=== PATIENT | female | born 1970 | race Caucasian/White ===

== ENCOUNTER 2017-03-15 08:24 | Emergency (ER) | payer BC, OTHER ==
[~2017-03-15] VITALS: Ht 157.5 cm; Wt 68.0 kg
--- OUTSIDE RECORDS SUMMARY | ~2017-03-15 | XMS | Clinical Summary ---
Demographics + + + | Address | [address] | | | [place] [address] | + + + | Home Phone | | + + + | Preferred Language | Unknown | + + + | Marital Status | Unknown | + + + | Orthodox Affiliation | Unknown | + + + | Race | Unknown | + + + | Ethnic Group | Unknown | + + + Author + + + | Author | [facility] | + + + | Organization | [facility] | + + + | Address | Unknown | + + + | Phone | Unavailable | + + + Care Team Providers + +------+ + | Care Program Associate Name | Role | Phone | + +------+ + PP | Unavailable | + +------+ + Source Comments [facility] is fully live on both [facility] and [facility] Allergies Not on File Current Medications [...]
--- OUTSIDE RECORDS SUMMARY | ~2017-03-15 | XMS | Clinical Summary ---
Demographics + + + | Address | [address] | | | [place] [address] | + + + | Home Phone | | + + + | Preferred Language | Unknown | + + + | Marital Status | Unknown | + + + | Religion Affiliation | Unknown | + + + | Race | Unknown | + + + | Ethnic Group | Unknown | + + + Author + + + | Author | [facility] | + + + | Organization | [facility] | + + + | Address | Unknown | + + + | Phone | Unavailable | + + + Care Team Providers + +------+ + | Care Etcher [employer]ed [employer]ards Name | Role | Phone | + +------+ + PP | Unavailable | + +------+ + Source Comments [facility] is fully live on both [facility] and [facility] InPatient.[facility] & [facility] Allergies Not on File Current [...]
[~2017-03-15 08:24] MED LIST: AUGMENTIN 875-1 EACH PO; ESTRADIOL2 MG PO; GABAPENTIN300 MG PO; IBUPROFEN800 MG PO; LANSOPRAZOLE30 MG PO; NORCO 5-325 TA1 EACH PO; PRILOSEC20 MG PO
[2017-03-15] MEDS ORDERED: METHYLPREDNISOLO4 M1 PO (08:58)
[2017-03-15] MEDS ORDERED: ONDANSETRON ODT8 MG PO (08:58)
[2017-03-15] MEDS ORDERED: KETOROLAC TROME10 MG PO (08:58)
== END 2017-03-15 10:12 | disposition home or self-care (01) ==
LOC: ED 08:24
DX: G89.29 Other chronic pain (principal); M54.5 Low back pain; K21.9 Gastro-esophageal reflux disease without esophagitis; Z90.710 Acquired absence of both cervix and uterus; Z90.49 Acquired absence of other specified parts of digestive tract; Z88.5 Allergy status to narcotic agent; Z88.8 Allergy status to other drugs, medicaments and biological substances; Z79.899 Other long term (current) drug therapy
CPT/HCPCS: 96372; 99283; J1885

== ENCOUNTER 2017-03-23 20:20 | Emergency (ER) | payer BC, OTHER ==
[~2017-03-23] VITALS: Ht 157.5 cm; Wt 63.5 kg
[~2017-03-23 20:20] MED LIST changes: +KETOROLAC TROME10 MG PO; +METHYLPREDNISOLO4 M1 PO; +ONDANSETRON ODT8 MG PO
[2017-03-23] MEDS ORDERED: ACYCLOVIR15 GM TOP (20:46)
[2017-03-23] MEDS ORDERED: TRIAMCINOLONE A15 G1 TOP (20:47)
[2017-03-23] MEDS ORDERED: LYRICA50 MG PO (20:47)
--- OUTSIDE RECORDS SUMMARY | 2017-03-23 21:01 | XMS | Clinical Summary ---
Demographics + + + | Address | [address] | | | [place] [address] | + + + | Home Phone | | + + + | Preferred Language | Unknown | + + + | Marital Status | Unknown | + + + | Hindu Affiliation | Unknown | + + + | Race | Unknown | + + + | Ethnic Group | Unknown | + + + Author + + + | Author | [facility] | + + + | Organization | [facility] | + + + | Address | Unknown | + + + | Phone | Unavailable | + + + Care Team Providers + +------+ + | Care Civil Manager Name | Role | Phone | + +------+ + PP | Unavailable | + +------+ + Source Comments [facility] is fully live on both [facility] and [facility] InPatient.[facility] Allergies Not on File Current Medications Not on file Active Problems Not on file Social History + +-------+ +--------+------+ | Tobacco Use | Types | Packs/Day | Years | Date | | | | | Used | | + +-------+ +--------+------+ | Never Assessed | | | | | + +-------+ +--------+------+ + + + | Sex Assigned at | Date Recorded | | | | + + + | Not on file | | + + + Plan of Treatment + + + + + | Health Maintenance | Due Date | Last Done | Comments | + + + + + | INFLUENZA VACCINE | | | | | (FLU SHOT) | 7 | | | + + + + + Results Not on filefrom Last 3 Months"
--- OUTSIDE RECORDS SUMMARY | 2017-03-23 21:01 | XMS | Clinical Summary ---
Demographics + + + | Address | [address] | | | [place] [address] | + + + | Home Phone | | + + + | Preferred Language | Unknown | + + + | Marital Status | Unknown | + + + | Taoist Affiliation | Unknown | + + + | Race | Unknown | + + + | Ethnic Group | Unknown | + + + Author + + + | Author | [facility] | + + + | Organization | [facility] | + + + | Address | Unknown | + + + | Phone | Unavailable | + + + Care Team Providers + +------+ + | Care Blower Insulator Name | Role | Phone | + +------+ + PP | Unavailable | + +------+ + Source Comments [facility] is fully live on both [facility] and [facility] InPatient.[facility] & [facility] Allergies Not on File Current [...]
[2017-03-23] MEDS ORDERED: KETOROLAC TROME10 MG PO (21:50)
== END 2017-03-23 21:56 | disposition home or self-care (01) ==
LOC: ED 20:20
DX: R21 Rash and other nonspecific skin eruption (principal); R51 Headache; K21.9 Gastro-esophageal reflux disease without esophagitis; Z88.5 Allergy status to narcotic agent; Z88.8 Allergy status to other drugs, medicaments and biological substances; Z79.899 Other long term (current) drug therapy
CPT/HCPCS: 80053; 85025; 99283

== ENCOUNTER 2019-06-08 10:58 | Emergency (ER) | payer BC ==
[~2019-06-08] VITALS: Ht 157.5 cm; Wt 64.0 kg
[~2019-06-08 10:58] MED LIST changes: +ACYCLOVIR15 GM TOP; +ESTRADIOL42.5 GM VAGINAL; +LYRICA50 MG PO; +PREVACID30 M1 PO; +TRIAMCINOLONE A15 G1 TOP
== END 2019-06-08 12:51 | disposition home or self-care (01) ==
LOC: ED 10:58
DX: S93.401A Sprain of unspecified ligament of right ankle, initial encounter (principal); K21.9 Gastro-esophageal reflux disease without esophagitis; Z79.899 Other long term (current) drug therapy; X58.XXXA Exposure to other specified factors, initial encounter
CPT/HCPCS: 73610; 99283-25; A9270

== ENCOUNTER 2020-04-08 06:24 | Day surgery (SDC) | payer BC ==
[~2020-04-08] VITALS: Ht 157.5 cm; Wt 65.9 kg
[~2020-04-08 06:24] MED LIST changes: +DAILY MULTIPLE1 EACH PO; +VITAMIN C100 MG PO; +VITAMIN D310 MCG PO; +VITAMIN E100 UNI1 PO; +ZYRTEC10 MG PO
[2020-04-08] MEDS ORDERED: KETOROLAC30 MG/1 M1 INJ (07:15)
--- NOTE | 2020-04-08 09:10 | NUR ---
04/08/20 0910 Arlin Chu 0809 PT ARRIVED IN PACU SLEEPY WITH NO C/O'S. ABD SOFT AND PASSING FLATUS. 0820 SITTING UP IN BED SIPPING ON WATER. NO C/O'S. 0830 DC INSTRUCTIONS GIVEN. ALL QUESTIONS ANSWERED. 0840 PT DISCHARGED. TO DS TO WAIT FOR RIDE HOME. 0855 ARRIVED IN DS. LEFT VIA W/C.
--- NOTE | 2020-04-09 06:32 | OR ---
[facility] [address], [place] [address] Signed DATE OF OPERATION: 04/08/2020 SURGEON: Grace Neal MD PREOPERATIVE DIAGNOSES: 1. Right mid quadrant abdominal pain. 2. Change in bowel habits with increased constipation. 3. Possibly thickened transverse colon on recent CT scan. POSTOPERATIVE DIAGNOSES: 1. 5 mm polyp at hepatic flexure. 2. 4 mm polyp at 90 cm. 3. No pathology of transverse colon. PROCEDURE: Colonoscopy with hot biopsy. ESTIMATED BLOOD LOSS: None. INDICATIONS: Jessica is a 49-year-old female, who I have met in the past. 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 She had an open cholecystectomy as well. 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 Morse. He had retired moved back to [place]. She has various abdominal complaints. Specifically, she feels like she is having pain in the right mid quadrant of the abdomen. She has had a mild change in bowel habits with worsening constipation. She is also worried because her sister in [place] apparently has a tumor up and around the epigastric area. Jessica had been working closely with her primary care provider. A CT scan of abdomen and pelvis showed the 10 cm loop of transverse colon that seems to be thickened. As a result, she was asked to see me for a colonoscopy. In 2006, she went through at least three surgeries. She is not sure if she had a colonoscopy back at that time. She is not aware of any family member with colon cancer or polyps. In the office, I gave her a pamphlet on colonoscopy. We had reviewed the nature of the test. She understands there is risk including, but not limited to gas bloating, crampy abdominal pain, bleeding, perforation requiring surgery, and missed diagnosis. She also understands the need for IV conscious sedation. She had expressed understanding and wished to proceed. Electronically Signed By: GARCE NEAL MD 04/09/20 0632 PATIENT NAME: JESSICA GARCIA OPERATIVE REPORT DATE OF : 70 REPORT #: [id number] PHYSICIAN: GRACE NEAL MD PCP: DEJA AGUIRRE MD REPORT IS CONFIDENTIAL AND NOT TO BE RELEASED WITHOUT AUTHORIZATION [facility] [address], [place] [address] Signed PROCEDURE NOTE: Jessica was taken into our endoscopy suite and placed in the left lateral decubitus position. She was given a total of 8 mg of Versed and 100 mcg of fentanyl to cover the case. A digital rectal exam was performed and this was unremarkable. The adult colonoscope was introduced and advanced under direct visualization of camera. It took a little extra sedation and abdominal compression in order to advance the scope directly into the cecum itself. Her prep was quite excellent. We could easily see the appendiceal orifice and the ileocecal valve. We turned the scope into the terminal ileum about 8-10 cm and it was unremarkable. After this, the scope was slowly withdrawn. We took pictures throughout for photodocumentation. She had two small polyps as listed above. There were easily removed completely with hot biopsy forceps. As we came to the transverse colon, we can see just a little distortion there in the mid transverse colon. It is probably from a Kunal-en-Y limb applying external pressure. However, the mucosa was quite healthy and unremarkable. The rest of the colon was unremarkable. The rectum was unremarkable. Upon retroflexion of the scope, there was no additional pathology noted above the anal canal. After this, the gas was suctioned out and the colonoscope removed. Jessica tolerated procedure quite well. RECOMMENDATIONS: I will see Jessica back in my office in 7 to 14 days to review her results including the pathology report. No obvious pathology in the transverse colon. Grace Neal MD [facility]/MODL /[id number] cc: MD Grace Calles MD Copies: DEJA AGUIRRE MD Electronically Signed By: GRACE NEAL MD 04/09/20 0632 PATIENT NAME: JESSICA GARCIA OPERATIVE REPORT DATE OF : 70 REPORT #: [id number] PHYSICIAN: GRACE NEAL MD PCP: DEJA AGUIRRE MD REPORT IS CONFIDENTIAL AND NOT TO BE RELEASED WITHOUT AUTHORIZATION [address] [address] Signed GRACE NEAL MD ~ Electronically Signed By: GRACE NEAL MD 04/09/20 0632 PATIENT NAME: JESSICA GARCIA OPERATIVE REPORT DATE OF : 70 REPORT #: [id number] PHYSICIAN: GRACE NEAL MD PCP: DEJA AGUIRRE MD REPORT IS CONFIDENTIAL AND NOT TO BE RELEASED WITHOUT AUTHORIZATION
--- NOTE | 2020-04-09 12:04 | PATH ---
[facility] [address] [facility] [place], [place] [address] Signed SPECIMEN(S): A HEPATIC FLEXURE POLYP SPECIMEN(S): B COLON POLYP AT 90 CM SPECIMEN SOURCE: A. HEPATIC FLEXURE POLYP B. COLON POLYP AT 90 CM CLINICAL HISTORY: Colonoscopy. Abdominal pain, constipation. Postop: Colon polyps. MICROSCOPIC DESCRIPTION: Histologic sections of all submitted blocks are examined by light microscopy. These findings, together with the gross examination, support the pathologic diagnosis. FINAL PATHOLOGIC DIAGNOSIS: A. Colon, hepatic flexure, polyp, polypectomy: - Tubular adenoma. - Negative for high-grade dysplasia or malignancy. B. Colon, polyp at 90 cm, polypectomy: - Tubular adenoma. - Negative for high-grade dysplasia or malignancy. NAL:cml:C2NR GROSS DESCRIPTION: Two specimens are received in two containers, labeled "TK." A. The specimen, labeled "TK, 1," and designated on the requisition "hepatic flexure," is received in formalin and consists of one wetzel soft tissue fragment that measures 0.3 cm in greatest dimension. The specimen is entirely submitted in cassette (A1). B. The specimen, labeled "TK, 2," and designated on the requisition "colon polyp at 90 cm," is received in formalin and consists of one wetzel soft tissue fragment that measures 0.3 cm in greatest dimension. The specimen is entirely submitted in cassette (B1). AT (under the direct supervision of a pathologist) The Gross Description was prepared using a voice recognition system. The report was reviewed for accuracy; however, sound-alike word errors, addition and/or deletions may occur. If there is any question about this report, please contact Client Services. PERFORMING LABORATORY: The technical component was performed by [employer] Leslye Garciabenigno Jacek, PATIENT NAME: DIMA GARCIA PATHOLOGY DATE OF : 70 REPORT #: [id number] PHYSICIAN: PK PATHOLOGY PCP: DEJA AGUIRRE MD REPORT IS CONFIDENTIAL AND NOT TO BE RELEASED WITHOUT AUTHORIZATION [facility] [address] [place], [place] [address] [place] [address] (Audio Production Manager: Sonia Aguirre MD; CLIA# [id number]). Professional interpretation was performed by [facility], [address] [address] (CLIA# [id number]). Diagnostician: Julissa Mukherjee MD Pathologist Electronically Signed 04/09/2020 Copies: ~ PATIENT NAME: DIMA GARCIA PATHOLOGY DATE OF : 70 REPORT #: [id number] PHYSICIAN: PK PATHOLOGY PCP: DEJA AGUIRRE MD REPORT IS CONFIDENTIAL AND NOT TO BE RELEASED WITHOUT AUTHORIZATION
== END 2020-04-08 08:55 | disposition home or self-care (01) ==
LOC: DS 06:24 → OPS 06:24 → DS 06:45 → OPS 08:55
PROVIDERS: ATTEND Colon & Rectal Surgery
PROC: 0DBL8ZX Excision of Transverse Colon, Via Natural or Artificial Opening Endoscopic, Diagnostic (ICD-10-PCS; principal; 2020-04-08 06:45)
DX: D12.3 Benign neoplasm of transverse colon (principal); K21.9 Gastro-esophageal reflux disease without esophagitis; Z88.1 Allergy status to other antibiotic agents; Z88.5 Allergy status to narcotic agent; Z88.8 Allergy status to other drugs, medicaments and biological substances
CPT/HCPCS: 99153; G0500; J2250; J3010; J7121

== ENCOUNTER 2022-10-22 22:37 | Emergency (ER) | payer BC ==
[~2022-10-22] VITALS: Ht 157.5 cm; Wt 60.0 kg
--- OUTSIDE RECORDS SUMMARY | ~2022-10-22 | XMS | Continuity of Care Document ---
Demographics + + + | Address | [address] | | | [place] [address] | + + + | Preferred Language | Unknown | + + + | Marital Status | | + + + | Bahai Affiliation | Unknown | + + + | Race | White | + + + | Ethnic Group | Not or | + + + Author + + + | Author | [facility] | + + + | Organization | [facility] | + + + | Address | [address] | | | [place] [address] | + + + | Phone | | + + + Care Team Providers + + + + | Care Post Manager Name | Role | Phone | + + + + Unavailable | Unavailable | + + + + Unavailable | Unavailable | + + + + Allergies and Intolerances + + + + + + | date | description | facility | reaction | severity | + + + + + + | (no date) | Urticaria | [facility] | (no reaction) | (no severity) | | [facility] | | | + + + + + + | (no date) | Nausea and | [facility] | (no reaction) | (no severity) | | | vomiting | [facility] | | | + + + + + + | (no date) | Amitriptyline | [facility] | (no reaction) | (no severity) | | [facility] | | | + + + + + + | (no date) | Cephalexin | [facility] | (no reaction) | (no severity) | | | [facility] | | | + + + + + + | (no date) | Codeine | [facility] | (no reaction) | (no severity) | | | [facility] | | | + + + + + + | (no date) | Amitriptyline | [facility] | (no reaction) | (no severity) | | | [facility] | | | + + + + + + | (no date) | Phenobarbital | [facility] | (no reaction) | (no severity) | [facility] | [facility] | | | + + + + + + | (no date) | Morphine | [facility] | (no reaction) | (no severity) | | | [facility] | | | + + + + + + | (no date) | Cephalexin | [facility] | (no reaction) | (no severity) | | | [facility] | | | + + + + + + | (no date) | Codeine | [facility] | (no reaction) | (no severity) | | | [facility] | | | + + + + + + | (no date) | Anaphylaxis | [facility] | (no reaction) | (no severity) | | | [facility] | | | + + + + + + | (no date) | Oxycodone | [facility] | (no reaction) | (no severity) | | | [facility] | | | + + + + + + | (no date) | Hallucinations | [facility] | (no reaction) | (no severity) | [facility] | [facility] | | | + + + + + + | (no date) | Amitriptyline | [facility] | (no reaction) | (no severity) | | | [facility] | | | + + + + + + | (no date) | Morphine | [facility] | (no reaction) | (no severity) | | | [facility] | | | + + + + + + | (no date) | Morphine | [facility] | (no reaction) | (no severity) | | | [facility] | | | + + + + + + | (no date) | Oxycodone | [facility] | (no reaction) | (no severity) | | | [facility] | | | + + + + + + | (no date) | Phenobarbital | [facility] | (no reaction) | (no severity) | | [facility] | | | + + + + + + | (no date) | Oxycodone | [facility] | (no reaction) | (no severity) | | | [facility] | | | + + + + + + | (no date) | phenobarbital | [facility] | (no reaction) | (no severity) | + + + + + + | (no date) | morphine | [facility] | (no reaction) | (no severity) | + + + + + + | (no date) | codeine | [facility] | (no reaction) | (no severity) | + + + + + + | (no date) | oxycodone | [facility] | (no reaction) | (no severity) | + + + + + + | (no date) | cephalexin | [facility] | (no reaction) | (no severity) | + + + + + + | (no date) | amitriptyline | [facility] | (no reaction) | (no severity) | + + + + + + | (no date) | mint | [facility] | (no reaction) | (no severity) | + + + + + + | (no date) | Cephalexin | [facility] | (no reaction) | (no severity) | | | [facility] | | | + + + + + + | (no date) | Codeine | [facility] | (no reaction) | (no severity) | | | [facility] | | | + + + + + + | (no date) | Phenobarbital | [facility] | (no reaction) | (no severity) | | | [facility] | | | + + + + + + Encounters No information. Functional Status No information. Immunizations + + + + | date | description | facility | + + + + | 2022-06-11 00:00 | DTaP | [facility] | + + + + | 2022-10-16 00:00 | DTaP | [facility] | + + + + Medications + + + + | date | description | facility | + + + + | 2022-06-11 00:00 | TRIAMCINOLONE 0.1% | [facility] | + + + + | 2022-10-16 00:00 | TRIAMCINOLONE 0.1% | [facility] | + + + + | 2022-06-11 00:00 | CETIRIZINE HCL | [facility] | + + + + | 2022-10-16 00:00 | CETIRIZINE HCL | [facility] | + + + + | 2022-10-16 00:00 | PSEUDOEPHEDRINE HCL | [facility] | + + + + | 2022-06-11 00:00 | KETOROLAC TROMETHAMINE | [facility] | + + + + | 2022-10-16 00:00 | KETOROLAC TROMETHAMINE | [facility] | + + + + | 2022-06-11 00:00 | ACYCLOVIR | [facility] | + + + + | 2022-10-16 00:00 | ACYCLOVIR | [facility] | + + + + | 2022-10-16 00:00 | CLARITHROMYCIN | [facility] | + + + + | 2022-10-16 00:00 | DIAZEPAM | [facility] | + + + + | 2022-06-11 00:00 | ESTRADIOL | [facility] | + + + + | 2022-10-16 00:00 | ESTRADIOL | [facility] | + + + + | 2022-06-11 00:00 | ASCORBIC ACID | [facility] | + + + + | 2022-10-16 00:00 | ASCORBIC ACID | [facility] | + + + + | 2022-06-11 00:00 | VITAMIN E ACID SUCCINATE | [facility] | + + + + | 2022-10-16 00:00 | VITAMIN E ACID SUCCINATE | [facility] | + + + + | 2022-06-11 00:00 | OMEPRAZOLE | [facility] | + + + + | 2022-10-16 00:00 | OMEPRAZOLE | [facility] | + + + + | 2022-06-11 00:00 | Cholecalciferol (Vitamin | [facility] | | | D3) | | + + + + | 2022-10-16 00:00 | Cholecalciferol (Vitamin | [facility] | | | D3) | | + + + + | 2022-06-11 00:00 | Estradiol | [facility] | + + + + | 2022-10-16 00:00 | Estradiol | [facility] | + + + + | 2022-06-11 00:00 | GABAPENTIN | [facility] | + + + + | 2022-10-16 00:00 | GABAPENTIN | [facility] | + + + + | 2022-06-11 00:00 | LANSOPRAZOLE | [facility] | + + + + | 2022-10-16 00:00 | LANSOPRAZOLE | [facility] | + + + + | 2022-10-16 00:00 | METRONIDAZOLE | [facility] | + + + + | 2017-03-15 00:00 | ONDANSETRON | [facility] | + + + + | 2022-10-16 00:00 | PANTOPRAZOLE SODIUM | [facility] | + + + + | 2022-06-11 00:00 | PREGABALIN | [facility] | + + + + | 2022-10-16 00:00 | PREGABALIN | [facility] | + + + + | 2017-03-15 00:00 | METHYLPREDNISOLONE | [facility] | + + + + | 2014-11-22 00:00 | AMOXICILLIN/POTASSIUM CLAV | [facility] | | | | | + + + + | 2017-03-15 00:00 | KETOROLAC TROMETHAMINE | [facility] | + + + + | 2014-01-02 00:00 | HYDROCODONE | [facility] | | | BIT/ACETAMINOPHEN | | + + + + | 2014-11-22 00:00 | HYDROCODONE | [facility] | | | BIT/ACETAMINOPHEN | | + + + + | 2022-06-11 00:00 | LANSOPRAZOLE | [facility] | + + + + | 2022-10-16 00:00 | LANSOPRAZOLE | [facility] | + + + + Problems + + + + | date | description | facility | + + + + | 2014-01-02 00:00 | Pain of right thumb | [facility] | + + + + | 2014-11-22 00:00 | Dog bite of right hand | [facility] | + + + + | 2017-03-15 00:00 | Gastroesophageal reflux | [facility] | | | disease | | + + + + | 2017-03-15 00:00 | Chronic back pain | [facility] | + + + + | 2017-03-15 00:00 | Nausea | [facility] | + + + + | 2017-03-23 00:00 | Headache | [facility] | + + + + | 2017-09-25 00:00 | Obstruction of duodenum | [facility] | + + + + | 2022-04-05 07:53 | PERSONAL HISTORY OF OTHER | [facility] | | | DISEASES OF THE DIGESTIVE | | | | SYSTEM | | + + + + | 2022-06-09 14:46 | ACUTE SINUSITIS, | [facility] | | | UNSPECIFIED | | + + + + | 2022-06-09 14:46 | DEVIATED NASAL SEPTUM | [facility] | + + + + | 2022-06-09 14:46 | OTHER SPECIFIED DISORDERS | [facility] | | | OF NOSE AND NASAL SINUSE | | + + + + | 2022-06-11 00:00 | Acute bronchitis | [facility] | + + + + | 2022-06-11 00:00 | Sinusitis | [facility] | + + + + | 2022-06-11 06:06 | ACUTE BRONCHITIS, | [facility] | | | UNSPECIFIED | | + + + + | 2022-06-11 06:06 | COUGH, UNSPECIFIED | [facility] | + + + + | 2022-06-11 06:06 | OTHER ASSISTED (CURRENT) | [facility] | | | DRUG THERAPY | | + + + + | 2022-06-11 06:06 | ALLERGY STATUS TO OTHER | [facility] | | | ANTIBIOTIC AGENTS STATUS | | + + + + | 2022-06-11 06:06 | ALLERGY STATUS TO NARCOTIC | [facility] | | | AGENT STATUS | | + + + + | 2022-06-11 06:06 | ALLERGY STATUS TO OTH | [facility] | | | DRUG/MEDS/BIOL SUBST STATUS | | | | | | + + + + | 2022-08-17 08:08 | CHRONIC PANSINUSITIS | [facility] | + + + + | 2022-08-17 08:08 | OTHER SPECIFIED | [facility] | | | POSTPROCEDURAL STATES | | + + + + | 2022-08-17 08:30 | CHRONIC PANSINUSITIS | [facility] | + + + + | 2022-10-16 00:00 | Strain of lumbar region | [facility] | + + + + | 2022-10-16 18:20 | GASTRO-ESOPHAGEAL REFLUX | [facility] | | | DISEASE WITHOUT ESOPHAGIT | | + + + + | 2022-10-16 18:20 | LOW BACK PAIN, UNSPECIFIED | [facility] | | | | | + + + + | 2022-10-16 18:20 | STRAIN OF MUSCLE, FASCIA | [facility] | | | AND TENDON OF LOWER BACK, | | + + + + | 2022-10-16 18:20 | EXPOSURE TO OTHER | [facility] | | | SPECIFIED FACTORS, INITIAL | | | | ENCOU | | + + + + | 2022-10-16 18:20 | OTHER ASSISTED (CURRENT) | [facility] | | | DRUG THERAPY | | + + + + | 2022-10-16 18:20 | ALLERGY STATUS TO OTHER | [facility] | | | ANTIBIOTIC AGENTS STATUS | | + + + + | 2022-10-16 18:20 | ALLERGY STATUS TO NARCOTIC | [facility] | | | AGENT STATUS | | + + + + | 2022-10-16 18:20 | ALLERGY STATUS TO OTH | [facility] | | | DRUG/MEDS/BIOL SUBST STATUS | | | | | | + + + + Procedures No information. Results/Labs No information. Social History No information. Vital Signs + + + +---------+ | date | measurement | value | units | + + + +---------+ | 2022-06-11 00:00 | BMI | 24.8 | kg/m2 | + + + +---------+ | 2022-06-11 00:00 | BP_diastolic | 73 | mmHg | + + + +---------+ | 2022-06-11 00:00 | BP_systolic | 106 | mmHg | + + + +---------+ | 2022-06-11 00:00 | heart_rate | 84 | /min | + + + +---------+ | 2022-06-11 00:00 | height_metric | 157.48 | cm | + + + +---------+ | 2022-06-11 00:00 | height_standard | 62 | in | + + + +---------+ | 2022-06-11 00:00 | o2_saturation | 99 | % | + + + +---------+ | 2022-06-11 00:00 | respiration_rate | 16 | /min | + + + +---------+ | 2022-06-11 00:00 | temperature_metric | 36.94 | C | | | | | | + + + +---------+ | 2022-06-11 00:00 | | 98.5 | F | | | temperature_standar | | | | | d | | | + + + +---------+ | 2022-06-11 00:00 | weight_metric | 61.5 | kg | + + + +---------+ | 2022-06-11 00:00 | weight_standard | 135.58 | lb | + + + +---------+ | 2022-06-11 00:00 | weight_standard | 135.59 | lb | + + + +---------+ | 2022-10-16 00:00 | BMI | 24.9 | kg/m2 | + + + +---------+ | 2022-10-16 00:00 | BP_diastolic | 61 | mmHg | + + + +---------+ | 2022-10-16 00:00 | BP_systolic | 106 | mmHg | + + + +---------+ | 2022-10-16 00:00 | heart_rate | 63 | /min | + + + +---------+ | 2022-10-16 00:00 | height_metric | 157.48 | cm | + + + +---------+ | 2022-10-16 00:00 | height_standard | 62 | in | + + + +---------+ | 2022-10-16 00:00 | o2_saturation | 97 | % | + + + +---------+ | 2022-10-16 00:00 | respiration_rate | 16 | /min | + + + +---------+ | 2022-10-16 00:00 | temperature_metric | 36.67 | C | | | | | | + + + +---------+ | 2022-10-16 00:00 | | 98 | F | | | temperature_standar | | | | | d | | | + + + +---------+ | 2022-10-16 00:00 | weight_metric | 61.69 | kg | + + + +---------+ | 2022-10-16 00:00 | weight_standard | 136 | lb | + + + +---------+"
--- OUTSIDE RECORDS SUMMARY | ~2022-10-22 | XMS | Continuity of Care Document ---
Demographics + + + | Address | [address] | | | [place] [address] | + + + | Preferred Language | Unknown | + + + | Marital Status | | + + + | Protestant Affiliation | Unknown | + + + | Race | White | + + + | Ethnic Group | Not or | + + + Author + + + | Author | [facility] | + + + | Organization | [facility] | + + + | Address | [address] | | | [place] [address] | + + + | Phone | | + + + Care Team Providers + + + + | Care Food Consultant Name | Role | Phone | + [...] + | 2022-06-11 00:00 | DTaP | [facility] | + + + + | 2022-10-16 00:00 | DTaP | [facility] | + + + + Medications + + + + | date | description | facility | + + + + | 2022-06-11 00:00 | TRIAMCINOLONE 0.1% | [facility] | + + + + | 2022-10-16 00:00 | TRIAMCINOLONE 0.1% | [facility] | + + + + | 2022-06-11 00:00 | CETIRIZINE HCL | [facility] | + + + + | 2022-10-16 00:00 | CETIRIZINE HCL | [facility] | + + + + | 2022-10-16 00:00 | PSEUDOEPHEDRINE HCL | [facility] | + + + + | 2022-06-11 00:00 | KETOROLAC TROMETHAMINE | [facility] | + + + + | 2022-10-16 00:00 | KETOROLAC TROMETHAMINE | [facility] | + + + + | 2022-06-11 00:00 | ACYCLOVIR | [facility] | + + + + | 2022-10-16 00:00 | ACYCLOVIR | [facility] | + + + + | 2022-10-16 00:00 | CLARITHROMYCIN | [facility] | + + + + | 2022-10-16 00:00 | DIAZEPAM | [facility] | + + + + | 2022-06-11 00:00 | ESTRADIOL | [facility] | + + + + | 2022-10-16 00:00 | ESTRADIOL | [facility] | + + + + | 2022-06-11 00:00 | ASCORBIC ACID | [facility] | + + + + | 2022-10-16 00:00 | ASCORBIC ACID | [facility] | + + + + | 2022-06-11 00:00 | VITAMIN E ACID SUCCINATE | [facility] | + + + + | 2022-10-16 00:00 | VITAMIN E ACID SUCCINATE | [facility] | + + + + | 2022-06-11 00:00 | OMEPRAZOLE | [facility] | + + + + | 2022-10-16 00:00 | OMEPRAZOLE | [facility] | + + + + | 2022-06-11 00:00 | Cholecalciferol (Vitamin | [facility] | | | D3) | | + + + + | 2022-10-16 00:00 | Cholecalciferol (Vitamin | [facility] | | | D3) | | + + + + | 2022-06-11 00:00 | Estradiol | [facility] | + + + + | 2022-10-16 00:00 | Estradiol | [facility] | + + + + | 2022-06-11 00:00 | GABAPENTIN | [facility] | + + + + | 2022-10-16 00:00 | GABAPENTIN | [facility] | + + + + | 2022-06-11 00:00 | LANSOPRAZOLE | [facility] | + + + + | 2022-10-16 00:00 | LANSOPRAZOLE | [facility] | + + + + | 2022-10-16 00:00 | METRONIDAZOLE | [facility] | + + + + | 2017-03-15 00:00 | ONDANSETRON | [facility] | + + + + | 2022-10-16 00:00 | PANTOPRAZOLE SODIUM | [facility] | + + + + | 2022-06-11 00:00 | PREGABALIN | [facility] | + + + + | 2022-10-16 00:00 | PREGABALIN | [facility] | + + + + | 2017-03-15 00:00 | METHYLPREDNISOLONE | [facility] | + + + + | 2014-11-22 00:00 | AMOXICILLIN/POTASSIUM CLAV | [facility] | | | | | + + + + | 2017-03-15 00:00 | KETOROLAC TROMETHAMINE | [facility] | + + + + | 2014-01-02 00:00 | HYDROCODONE | [facility] | | | BIT/ACETAMINOPHEN | | + + + + | 2014-11-22 00:00 | HYDROCODONE | [facility] | | | BIT/ACETAMINOPHEN | | + + + + | 2022-06-11 00:00 | LANSOPRAZOLE | [facility] | + + + + | 2022-10-16 00:00 | LANSOPRAZOLE | [facility] | + + + + Problems + + + + | date | description | facility | + + + + | 2014-01-02 00:00 | Pain of right thumb | [facility] | + + + + | 2014-11-22 00:00 | Dog bite of right hand | [facility] | + + + + | 2017-03-15 00:00 | Gastroesophageal reflux | [facility] | | | disease | | + + + + | 2017-03-15 00:00 | Chronic back pain | [facility] | + + + + | 2017-03-15 00:00 | Nausea | [facility] | + + + + | 2017-03-23 00:00 | Headache | [facility] | + + + + | 2017-09-25 00:00 | Obstruction of duodenum | [facility] | + + + + | 2022-04-05 [...] | 2022-06-11 00:00 | Acute bronchitis | [facility] | + + + + | 2022-06-11 00:00 | Sinusitis | [facility] | + + + + | 2022-06-11 06:06 | ACUTE BRONCHITIS, | [facility] | | | UNSPECIFIED | | + + + + | 2022-06-11 06:06 | COUGH, UNSPECIFIED | [facility] | + + + + | 2022-06-11 06:06 | OTHER SHELTER (CURRENT) | [facility] | | | DRUG [...] | Strain of lumbar region | [facility] | + + + + | 2022-10-16 [...] + + | 2022-10-16 18:20 | OTHER SHELTER (CURRENT) | [facility] | | | DRUG [...]
[~2022-10-22 22:37] MED LIST changes: +CLARITHROMYCIN500 MG PO; +DIAZEPAM2 MG PO; +KETOROLAC30 MG/1 M1 INJ; +METRONIDAZOLE500 MG PO; +PROTONIX20 MG PO; +SUDAFED 12 HOU120 MG PO
--- OUTSIDE RECORDS SUMMARY | 2022-10-22 22:41 | XMS ---
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 EBhupendra VISIT COUNT (12 MO.) 3 [facility] TOTAL 3 NOTE: Visits indicate total known visits. 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
[2022-10-22 23:28] LABS: BASOPHILS 2.5 % (0-2); EOSINOPHILS 1.6 % (0-6); HEMOGLOBIN 15.7 g/dL (12.0-18.0); LYMPHOCYTES 15.6 % (24-44); MCH 28.6 (27-36); MCHC 33.3 g/dl (30-36); MCV 85.9 fl (81-99); MONOCYTES 2.7 % (0-12); NEUTROPHILS 77.6 % (39-80); PLATELET COUNT 151 K/uL (140-440); RBC 5.47 M/ul (4.3-5.7); RDW 13.3 (10.5-15.0)
[2022-10-22 23:47] LABS: BILIRUBIN, URINE NEGATIVE (negative); BLOOD/HGB, URINE NEGATIVE (Negative); KETONE, URINE NEGATIVE (Negative); LEUK ESTERASE, URINE NEGATIVE (negative); NITRITE, URINE NEGATIVE (negative); PH, URINE 6.5 (5-7)
[2022-10-22 23:49] LABS: ALBUMIN 3.8 g/dL (3.4-5.0); ALBUMIN/GLOBULIN RATIO 1.36 (1.1-2.4); ANION GAP 14.7 (7-21); BILIRUBIN, TOTAL 0.9 ng/dL (0.2-1.0); BUN/CREATININE RATIO 18.05 (6.0-28.6); CALCIUM 9.3 mg/dL (8.5-10.1); CREATININE, SERUM 0.72 mg/dL (0.55-1.02); MAGNESIUM 2.2 mg/dL (1.8-2.4); POTASSIUM 3.7 mmol/L (3.5-5.1); PROTEIN, TOTAL 6.6 g/dL (6.4-8.2)
[2022-10-23] MEDS ORDERED: ONDANSETRON ODT4 MG PO (01:56)
[2022-10-23 02:05] VITALS: BP 113/72
== END 2022-10-23 02:06 | disposition home or self-care (01) ==
LOC: ED 22:37
PROVIDERS: Internal Medicine
DX: R11.2 Nausea with vomiting, unspecified (principal); E86.0 Dehydration; K59.00 Constipation, unspecified; K21.9 Gastro-esophageal reflux disease without esophagitis; Z79.899 Other long term (current) drug therapy; Z88.1 Allergy status to other antibiotic agents; Z88.5 Allergy status to narcotic agent; Z88.8 Allergy status to other drugs, medicaments and biological substances; Z91.018 Allergy to other foods; Z90.49 Acquired absence of other specified parts of digestive tract
CPT/HCPCS: 36415; 74022; 80053; 81003; 83036; 83735; 84703; 85025; 96361; 96374; 96375; 99284-25; A9270; J1790; J2405; J7121